=== PATIENT | female | born 1995 | race Caucasian/White ===

== ENCOUNTER 2019-05-29 17:48 | Emergency (ER) | payer MEDICAID ==
[~2019-05-29] VITALS: Ht 154.9 cm; Wt 100.0 kg
[~2019-05-29 17:48] MED LIST: DEXL30CA3 PO; DICY10CA88 PO; EPIN0.3A2 SQ; FAMO-1 PO; IBUP-1984 PO; IPRA3AMP31 IH; MECL12.5 PO; MONT10TA21 PO; ONDA4TAB9 PO; PRED20TA PO; SUCR1ORA2 PO; ZOF4T PO
[2019-05-29 18:23] VITALS: BP 133/81
[2019-05-29] MEDS ORDERED: IBUP-1984 PO (20:23)
== END 2019-05-29 21:00 | disposition home or self-care (01) ==
LOC: ER 17:49
DX: M25.511 Pain in right shoulder (principal); G89.29 Other chronic pain; J45.909 Unspecified asthma, uncomplicated; Z56.0 Unemployment, unspecified; Z91.030 Bee allergy status; Z79.899 Other long term (current) drug therapy
CPT/HCPCS: 99282

== ENCOUNTER 2021-08-08 20:15 | Emergency (ER) | payer MEDICAID ==
[~2021-08-08] VITALS: Ht 152.4 cm; Wt 116.8 kg
[2021-08-08] MEDS ORDERED: iohexol 350MG/ML 100ml bottle IV ONE (21:45)
[2021-08-08 22:20] LABS: BASOPHILS % (AUTO) 0.3 % (0-1); EOSINOPHILS # (AUTO) 0.1 X10'3 (0-0.9); EOSINOPHILS % (AUTO) 1.5 % (0-6); HEMOGLOBIN 12.6 g/dl (12.0-16.0); LYMPHOCYTES # (AUTO) 2.3 X10'3 (1.1-4.8); LYMPHOCYTES % (AUTO) 27.9 % (21-51); MEAN CORPUSCULAR HEMOGLOBIN 29.4 PG (27.0-31.0); MEAN CORPUSCULAR VOLUME 86.6 FL (78-98); MEAN PLATELET VOLUME 8.4 FL (7.4-10.4); MONOCYTES # (AUTO) 0.5 X10'3 (0-0.9); MONOCYTES % (AUTO) 6.3 % (2-12); NEUTROPHILS # (AUTO) 5.2 X10'3 (1.8-7.7); PLATELET COUNT 286 X10'3 (140-440); RED BLOOD COUNT 4.27 X10'6 (4.20-5.60); RED CELL DISTRIBUTION WIDTH 13.8 % (11.5-14.5); WHITE BLOOD COUNT 8.2 X10'3 (4.5-11.0)
[2021-08-08 22:29] LABS: D-DIMER 0.28 MG/L FEU (0-0.50)
[2021-08-08 22:32] LABS: ALANINE AMINOTRANSFERASE 20 U/L (12-78); ALBUMIN 3.4 G/DL (3.4-5.0); ALBUMIN/GLOBULIN RATIO 0.8 (1.1-1.5); ALKALINE PHOSPHATASE 103 IU/L (46-116); ANION GAP 7 (8-16); ASPARTATE AMINO TRANSFERASE 11 U/L (10-37); BILIRUBIN,TOTAL 0.2 MG/DL (0.1-1.0); BLOOD UREA NITROGEN 12 MG/DL (7-18); BUN/CREATININE RATIO 12.6 (6.6-38.0); CALCIUM 8.1 MG/DL (8.5-10.1); CHLORIDE 106 MMOL/L (99-107); CREATININE 0.95 MG/DL (0.40-0.90); GLUCOSE 101 MG/DL (70-104); POTASSIUM 3.8 MMOL/L (3.5-5.1); SODIUM 139 MMOL/L (135-145); TOTAL CARBON DIOXIDE 26.5 MMOL/L (24-32); TOTAL PROTEIN 7.8 G/DL (6.4-8.2); eGFR 71 ML/MIN
[2021-08-08 22:49] LABS: HCG SERUM QL NEGATIVE
[2021-08-08] MEDS ORDERED: BUDE180A INH (23:33)
[2021-08-08] MEDS ORDERED: PRED20TA PO (23:33)
[2021-08-08] MEDS ORDERED: ALBU6.7H9 INH (23:33)
[2021-08-08 23:57] VITALS: BP 135/87
== END 2021-08-08 23:59 | disposition home or self-care (01) ==
LOC: ER 20:16
DX: U07.1 COVID-19 (principal); J40 Bronchitis, not specified as acute or chronic; R04.2 Hemoptysis; R06.02 Shortness of breath; R05.9 Cough, unspecified; Z56.0 Unemployment, unspecified; Z79.899 Other long term (current) drug therapy
CPT/HCPCS: 36415; 71045; 80053; 83880; 84484; 84703; 85025; 85379; 93005; 99285; Q9967

== ENCOUNTER 2021-09-16 11:22 | Emergency (ER) | payer MEDICAID ==
[~2021-09-16] VITALS: Ht 154.9 cm; Wt 113.6 kg
[~2021-09-16 11:22] MED LIST changes: +ALBU6.7H9 INH; +BUDE180A INH
[2021-09-16] MEDS ORDERED: AMOX-101 PO (11:35)
[2021-09-16 11:36] VITALS: BP 128/87
[2021-09-16] MEDS ORDERED: ketorolac trometh inj. 60 MG/2 ML VIAL IM ONE (11:55)
== END 2021-09-16 12:45 | disposition home or self-care (01) ==
LOC: ER 11:22
DX: J02.9 Acute pharyngitis, unspecified (principal); J45.909 Unspecified asthma, uncomplicated; Z56.0 Unemployment, unspecified; Z91.030 Bee allergy status; Z79.899 Other long term (current) drug therapy; Z79.2 Long term (current) use of antibiotics
CPT/HCPCS: 96372; 99283; J1885